=== PATIENT | male | born 1960 | race Hispanic/Latino ===

== ENCOUNTER 2020-01-19 07:01 | Inpatient (IN) | payer OTHER ==
[2020-01-19] VITALS (20 sets, daily range): BP systolic 103–146; BP diastolic 45–81
[~2020-01-19] VITALS: Ht 172.7 cm; Wt 104.3 kg
[2020-01-19 07:24] LABS: BASOPHILS % (AUTO) 0.5 % (0.0-5.0); EOSINOPHILS % (AUTO) 2.3 % (0.0-8.0); HEMATOCRIT 43.9 % (42-54); LYMPHOCYTES % (AUTO) 46.6 % (21.0-51.0); MEAN CORPUSCULAR HEMOGLOBIN 31.2 pg (27.0-33.0); MEAN CORPUSCULAR HGB CONC 35.1 g/dL (32.0-36.0); MONOCYTES % (AUTO) 8.9 % (3.0-13.0); NEUTROPHILS % (AUTO) 41.5 % (40.0-77.0); PLATELET COUNT (AUTO) 292 K/uL (130-400); RED BLOOD CELL COUNT(AUTO) 4.93 MIL/uL (4.50-6.20); RED CELL DISTRIBUTION WIDTH 11.8 % (11.0-15.5); WHITE BLOOD COUNT (AUTO) 8.2 K/uL (4.8-10.8)
[2020-01-19 07:43] LABS: ALBUMIN 4.1 g/dL (3.5-5.0); BILIRUBIN,TOTAL 0.7 mg/dL (0.2-1.0); CREATININE 0.8 mg/dL (0.5-1.5); TOTAL PROTEIN, SERUM 8.1 g/dL (6.0-8.3)
[2020-01-19 07:44] LABS: INR 0.99 (0.85-1.15); PARTIAL THROMBOPLASTIN TIME 25.1 SEC (26.3-35.5); PROTHROMBIN TIME 10.7 SEC (9.6-11.6)
[2020-01-19] MEDS ORDERED: ONDANSETRON HCL 4 MG/2 ML VIAL ONE ×2 (07:59→12:20)
[2020-01-19] MEDS ORDERED: KETOROLAC TROMETHAMINE 30MG/ML ONE (07:59)
[2020-01-19] MEDS ORDERED: LACTATED RINGERS 1000ML 1,000 ML IV ONE (11:47)
[2020-01-19] MEDS ORDERED: LIDOCAINE PF 2% 5ML ABBOJECT ONE (12:19)
[2020-01-19] MEDS ORDERED: DEXAMETHASONE SOD PHOSPHATE 10MG/ML 1ML VIAL ONE ×2 (12:19→12:24)
[2020-01-19] MEDS ORDERED: GLYCOPYRROLATE 1 MG/5 ML SYRINGE ONE (12:20)
[2020-01-19] MEDS ORDERED: ROCURONIUM 10MG/1ML SYR 10 MG/ML ML ONE (12:20)
[2020-01-19] MEDS ORDERED: MIDAZOLAM HCL 1 MG/ML 2ML VIAL ONE (12:20)
[2020-01-19] MEDS ORDERED: NEOSTIGMINE 5MG/5ML SYR IV ONE (12:20)
[2020-01-19] MEDS ORDERED: PROPOFOL 10 MG/ML 20ML VIAL IV ONE (12:20)
[2020-01-19] MEDS ORDERED: FENTANYL CITRATE PF 50 MCG/1 ML 2ML VIAL ONE ×2 (12:21→12:51)
[2020-01-19] MEDS ORDERED: CEFAZOLIN SODIUM 1 GM VIAL ONE (13:05)
[2020-01-19] MEDS ORDERED: MEPERIDINE-PF 25 MG/ML SYG ONE (14:05)
[2020-01-19] MEDS ORDERED: MORPHINE SULFATE 2 MG/ML 1ML SYG ONE (14:29)
--- NOTE | 2020-01-19 17:59 | NUR ---
PT PREPARED FOR DISCHARGE HOME, IV REMOVED W/O DIFFICULTY OR COMPLICATION. DISCHARGE INSTRUCTIONS UNDERSTOOD BY THE PT. DISMISSED BY W/C IN GOOD CONDITION ACCOMPANIED BY FAMILY AND STAFF
== END 2020-01-19 18:18 | disposition home or self-care (01) | DRG 355 ==
LOC: EDH 07:01 → EDHIP 07:02 → 4AH 14:28
PROVIDERS: ADMIT Surgery; ATTEND Surgery
PROC: 0WUF0JZ Supplement Abdominal Wall with Synthetic Substitute, Open Approach (ICD-10-PCS; principal; 2020-01-19 12:40)
DX: K42.0 Umbilical hernia with obstruction, without gangrene (principal); Z20.828 Contact with and (suspected) exposure to other viral communicable diseases
CPT/HCPCS: 36415; 74176; 80053; 82550; 83690; 84484; 85025; 85610; 85730; 87426; 93005; C1781; G0378; J0690; J1100; J1885; J2001; J2175; J2250; J2405; J2704; J2710; J3010; J3490; J7120; U0003